=== PATIENT | male | born 1980 | race Caucasian/White ===

== ENCOUNTER 2023-06-25 11:42 | Emergency (ER) | payer SELFPAY ==
[~2023-06-25] VITALS: Ht 162.6 cm; Wt 63.6 kg
[2023-06-25 11:44] VITALS: TEMP 97.6
[2023-06-25] MEDS ORDERED: ROXICODONE 55 MG/TAB PO ×2 (14:06→14:09)
[2023-06-25 14:35] VITALS: BP 128/95; PULSE 77
== END 2023-06-25 14:35 | disposition home or self-care (01) ==
LOC: COL.ER 11:42 → EDBD 11:44 → COL.ER 14:35
DX: S43.004A Unspecified dislocation of right shoulder joint, initial encounter (principal); Z87.828 Personal history of other (healed) physical injury and trauma; W13.2XXA Fall from, out of or through roof, initial encounter
CPT/HCPCS: J1885; J2405; J2704; J3010

== ENCOUNTER → 2023-07-12 | Outpatient (RCR) | payer OTHER ==
[~2023-07-12] MED LIST: ROXICODONE 55 MG/TAB PO
== END | disposition home or self-care (01) ==
LOC: WSPT → WSOH 06-27 12:47 → WSPT 07-03 10:00 → WSOH 07-11 09:03 → WSPT 09:45
DX: S43.014D Anterior dislocation of right humerus, subsequent encounter (principal); X58.XXXD Exposure to other specified factors, subsequent encounter

== ENCOUNTER 2023-07-28 15:01 | Outpatient (RCR) | payer OTHER | END 2023-07-28 17:00 | disposition home or self-care (01) | LOC: WSPT 15:01 | DX: S43.014D Anterior dislocation of right humerus, subsequent encounter (principal) ==